=== PATIENT | male | born 1980 | race Caucasian/White ===

== ENCOUNTER 2024-08-22 08:21 | Outpatient (REF) | payer OTHER, SELFPAY ==
--- NOTE | ~2024-08-22 | CT_ITS ---
EXAMINATION: CT ABDOMEN WITHOUT AND WITH CONTRAST CLINICAL INFORMATION: Cyst of the kidney, left-sided. COMPARISON: None available. TECHNIQUE: Contiguous axial thin section helical images of the abdomen were performed before and after the administration of 85 mL of Omnipaque 350 intravenous contrast without reported immediate complications. The data set was reformatted in the coronal and sagittal planes and reviewed on an independent workstation. This CT examination was performed using dose optimization techniques as appropriate, variously including the following: *Automated exposure control *Adjustment of mA and/or kV according to patient size (this includes techniques or standardized protocols for targeted exams where dose is matched to indication/reason for exam; i.e. extremities or head) *Use of iterative reconstruction technique DLP: 312 mGy-cm FINDINGS: Right kidney: No hydronephrosis. No renal calculus. No renal mass. Subcentimeter cyst anterior. Left kidney: 7 mm calculus in the lower pelvicalyceal system. No hydronephrosis. Multifocal exophytic, cortical medullary junction, partially septated nonenhancing fluid density lesions in the anterior midportion, the largest measures 4 cm and 2.4 cm.. There are multiple scattered nonenhancing fluid density lesions. No renal mass. Liver measures 16 cm. No focal mass. Portal vein and hepatic veins are patent. Intrahepatic portion of the IVC is patent. No intrahepatic biliary ductal dilatation. No pericholecystic fluid collection or gallbladder wall thickening. Common bile duct measures 4 mm. No focal pancreatic mass. No peripancreatic fluid collections. No main pancreatic ductal dilatation. No nodular lesions in the adrenal glands Spleen measures 8 cm. No focal mass. No ascites. No pneumoperitoneum. No intestinal obstruction pattern. Appendix is normal and retrocecal. Nonspecific prominent mesenteric lymph nodes. No aneurysm or dissection, abdominal aorta. Multilevel thoracolumbar spondylosis without acute fracture or listhesis. Small fat-containing umbilical hernia. CT/CT abdomen wo/w IV con IMPRESSION: Bosniak type II cysts, left kidney. Bosniak type I cyst, bilaterally. Nonobstructing nephrolithiasis, left kidney. Fleischner guidelines were followed. Electronically signed by: Yobani Pace MD 10/10/2024 02:24 PM [facility] [place]
[2024-08-22] MEDS: iohexoL 350 MG/ML 100 ML INFUS..BTL 85 ML IV (09:27)
== END 2024-08-22 08:22 | disposition home or self-care (01) ==
LOC: HO.CT 08:21
PROVIDERS: Visit Provider Internal Medicine Nephrology
DX: N28.1 Cyst of kidney, acquired (principal)
CPT/HCPCS: 74170; Q9967

== ENCOUNTER → 2024-08-22 08:24 | Outpatient (BNV) | payer OTHER, SELFPAY | PROVIDERS: Visit Provider Radiology Diagnostic Radiology | DX: N28.1 Cyst of kidney, acquired (principal) | CPT/HCPCS: 74170 ==